=== PATIENT | male | born 1990 | race Caucasian/White ===

== ENCOUNTER 2017-02-02 19:59 | Emergency (ER) | payer BC ==
[~2017-02-02] VITALS: Ht 190.5 cm; Wt 131.5 kg
[2017-02-02 20:08] VITALS: BP 160/110
[2017-02-02] MEDS ORDERED: ACETAMINOPHEN/CODEINE#3 (300/30mg) TAB PO ONE (21:45)
== END 2017-02-02 21:52 | disposition home or self-care (01) ==
LOC: ER 20:09
DX: K04.7 Periapical abscess without sinus (principal)